=== PATIENT | female | born 1980 | race Two or more races ===

== ENCOUNTER → 2018-07-12 | Outpatient (CLI) | payer OTHER ==
[~2018-07-12] MED LIST: AMOCLA875 PO; AMOX500 PO; AZIT500 PO; Benadryl 50 mg50 MG PO; CEPH500 PO; CRUTCH3 USE; CRUTCH4 USE; CYCL10 PO; DIPH50 PO; HYDACE5 PO; IBUP800 PO; KETO10 PO; METO10; METO5A; METPRE4DP PO; NAPR500 PO; OMEP10ER PO; OMEP20ER PO; ONDA4 PO; OXYACE5T; OXYACE5T PO; OXYACE7.5T PO; PHENA200 PO; PRED10 PO; PRED20 PO; PRENATAL VIT; PROACE100 PO; PROCODE120 PO; PROM25 PO; RANI150 PO; RXAMOX500 PO; RXHYDACE PO; RXOXYACE PO; RXPHEN200 PO; RXSULTRIDS PO; SULTRIDS PO
== END | disposition home or self-care (01) ==
LOC: LAB SHORT 14:16 → LAB EV 14:16
DX: N39.0 Urinary tract infection, site not specified (principal)
CPT/HCPCS: 87077; 87086; 87147; 87186

== ENCOUNTER → 2018-07-27 | Outpatient (CLI) | payer OTHER ==
[2018-08-01 17:07] LABS: CHLAMYDIA BY NAA Negative (Negative); GONOCOCCUS BY NAA Negative (Negative); TRICH VAG BY NAA Negative (Negative)
== END ==
LOC: LAB EV 17:34 → LAB SHORT 17:34
PROVIDERS: Nurse Practitioner
DX: R10.2 Pelvic and perineal pain (principal)
CPT/HCPCS: 87070; 87205; 87491; 87591; 87661

== ENCOUNTER 2019-05-07 19:30 | Emergency (ER) | payer OTHER ==
[~2019-05-07] VITALS: Ht 170.2 cm; Wt 99.8 kg
[2019-05-07 20:35] LABS: BASOPHILS ABSOLUTE AUTO 0.08 K/mm3 (0.00-0.23); BASOPHILS PERCENT AUTO 1 % (0-2); EOSINOPHILS PERCENT AUTO 2 % (0-6); Hematocrit 37.1 % (33.0-51.0); Hemoglobin 12.1 g/dL (11.5-16.0); IMMATURE GRAN ABSOLUTE AUTO 0.04 K/mm3 (0.00-0.10); IMMATURE GRAN PERCENT AUTO 0 % (0-1); LYMPHOCYTES ABSOLUTE AUTO 4.15 K/mm3 (0.84-5.20); LYMPHOCYTES PERCENT AUTO 31 % (21-46); MONOCYTES ABSOLUTE AUTO 0.76 K/mm3 (0.16-1.47); MONOCYTES PERCENT AUTO 6 % (4-13); Mean Corpuscular HGB 29.5 pg (26.0-34.0); Mean Corpuscular HGB Conc 32.6 g/dL (31.5-36.5); Mean Corpuscular Volume 91 fL (80-100); Mean Platelet Volume 10.4 fL (9.1-12.4); NEUTROPHILS ABSOLUTE AUTO 8.07 K/mm3 (1.96-9.15); NEUTROPHILS PERCENT AUTO 61 % (41-73); Platelet Count 331 K/mm3 (150-400); RDW Coefficient Variation 13.3 % (11.7-14.2); RDW Standard Deviation 43.7 fL (35.1-46.3)
[2019-05-07] MEDS ORDERED: CYCL10 PO (20:36)
[2019-05-07] MEDS ORDERED: LARIN1 EACH PO (20:37)
[2019-05-07] MEDS ORDERED: PAIN CREAM (20:37)
[2019-05-07 20:57] LABS: Alanine Aminotransfer (ALT/SGP 23 U/L (12-78); Albumin, Blood 3.6 g/dL (3.4-5.0); Albumin/Globulin Ratio 0.8 (0.8-1.8); Alk Phos 68 U/L (50-136); Anion Gap 7 mmol/L (6-16); Aspartate Aminotrans (AST/SGOT 13 U/L (12-37); Bilirubin, Total 0.2 mg/dL (0.1-1.0); Blood Urea Nitrogen 12 mg/dL (8-24); Bun/Creatinine Ratio 16.4 (12.0-20.0); CO2, Blood 26 mmol/L (21-32); Calcium, Blood 8.7 mg/dL (8.5-10.1); Chloride, Blood 107 mmol/L (98-108); Creatinine, Blood 0.73 mg/dL (0.40-1.00); Globulin, Blood 4.3 g/dL (2.2-4.0); Glomerular Filtration Rate >60 (60-); Glucose, Blood 85 mg/dL (70-99); Potassium, Blood 3.7 mmol/L (3.5-5.5); Sodium, Blood 140 mmol/L (136-145); Total Protein, Blood 7.9 g/dL (6.4-8.2)
[2019-05-07 21:30] LABS: Source, Urine Clean Catch
[2019-05-07] MEDS ORDERED: COMPAZINE10 MG PO (21:32)
[2019-05-07] MEDS ORDERED: Norco 5-325 Ta1 EACH PO (21:32)
[2019-05-07 21:37] LABS: Bilirubin, Urine Neg (Neg); Blood, Urine Neg (Neg); Glucose Qualitative, Urine Neg (Neg); Ketones, Urine Neg (Neg); Leukocyte Esterase, Urine Neg (Neg); Nitrite, Urine Neg (Neg); Protein, Urine Neg (Neg); Urobilinogen, Urine NORM (Normal); pH, Urine 6.5 (5.0-8.0)
[2019-05-07 21:46] LABS: Appearance, Urine Clear (Clear); Color, Urine Yellow (P-Yellow)
[2019-07-31] MEDS ORDERED: ACYC200 (12:49)
[2019-07-31] MEDS ORDERED: EPIPEN0.3 MG/0.3 (12:49)
[2019-07-31] MEDS ORDERED: DICLOFENAC SOD100 G1 (12:49)
== END 2019-05-07 22:10 | disposition home or self-care (01) ==
LOC: ER 19:30
PROVIDERS: Physician Assistant
DX: K82.8 Other specified diseases of gallbladder (principal); F32.9 Major depressive disorder, single episode, unspecified; F17.200 Nicotine dependence, unspecified, uncomplicated; Z79.899 Other long term (current) drug therapy
CPT/HCPCS: 36415; 76705; 80053; 81003; 81025; 83690; 84703; 85025; 96361; 96374; 96375; 99284-25; A9270; A9270-GY; J1170; J1885; J2405; J7030

== ENCOUNTER 2019-08-05 08:42 | Day surgery (SDC) | payer OTHER ==
[~2019-08-05] VITALS: Ht 172.7 cm; Wt 99.5 kg
[~2019-08-05 08:42] MED LIST changes: +ACYC200; +COMPAZINE10 MG PO; +DICLOFENAC SOD100 G1; +EPIPEN0.3 MG/0.3; +LARIN1 EACH PO; +Norco 5-325 Ta1 EACH PO; +PAIN CREAM
--- NOTE | 2019-08-05 11:35 | NUR ---
08/05/19 1135 Kody Ny S 1115-LATE ENTRY PATIENT STATES SHE HAS A BAD RIGHT SHOULDER AND STATES IT IS STARTING TO BOTHER HER AND RATES PAIN AT A 7/10. DENIES THE NEED FOR PAIN MEDS.
== END 2019-08-05 11:26 | disposition home or self-care (01) ==
LOC: ORSCSDS 08:42
PROVIDERS: Internal Medicine Gastroenterology
PROC: 0DB88ZX Excision of Small Intestine, Via Natural or Artificial Opening Endoscopic, Diagnostic (ICD-10-PCS; principal; 2019-08-05 10:45)
PROC: 0DB68ZX Excision of Stomach, Via Natural or Artificial Opening Endoscopic, Diagnostic (ICD-10-PCS; principal; 2019-08-05 10:45)
DX: R10.9 Unspecified abdominal pain (principal); K92.1 Melena; B96.81 Helicobacter pylori [H. pylori] as the cause of diseases classified elsewhere; E66.9 Obesity, unspecified; F41.8 Other specified anxiety disorders; Z68.35 Body mass index [BMI] 35.0-35.9, adult; Z79.899 Other long term (current) drug therapy
CPT/HCPCS: 88305; 88342; J2250; J2704; J7120

== ENCOUNTER 2020-06-11 15:58 | Inpatient (IN) | payer OTHER ==
[~2020-06-11] VITALS: Ht 170.2 cm; Wt 109.0 kg
[2020-06-16] MEDS ORDERED: PEPCID40 MG PO (06:04)
[2020-06-16 06:46] LABS: BASOPHILS ABSOLUTE AUTO 0.05 K/mm3 (0.00-0.23); BASOPHILS PERCENT AUTO 0 % (0-2); EOSINOPHILS ABSOLUTE AUTO 0.15 K/mm3 (0.00-0.68); EOSINOPHILS PERCENT AUTO 1 % (0-6); Hematocrit 36.5 % (33.0-51.0); Hemoglobin 11.7 g/dL (11.5-16.0); IMMATURE GRAN ABSOLUTE AUTO 0.08 K/mm3 (0.00-0.10); IMMATURE GRAN PERCENT AUTO 1 % (0-1); LYMPHOCYTES ABSOLUTE AUTO 3.09 K/mm3 (0.84-5.20); LYMPHOCYTES PERCENT AUTO 22 % (21-46); MONOCYTES ABSOLUTE AUTO 1.11 K/mm3 (0.16-1.47); MONOCYTES PERCENT AUTO 8 % (4-13); Mean Corpuscular HGB 29.1 pg (26.0-34.0); Mean Corpuscular HGB Conc 32.1 g/dL (31.5-36.5); Mean Corpuscular Volume 91 fL (80-100); Mean Platelet Volume 10.3 fL (9.1-12.4); NEUTROPHILS ABSOLUTE AUTO 9.42 K/mm3 (1.96-9.15); NEUTROPHILS PERCENT AUTO 68 % (41-73); Platelet Count 273 K/mm3 (150-400); RDW Coefficient Variation 13.6 % (11.7-14.2); RDW Standard Deviation 45.1 fL (35.1-46.3); Red Blood Cell Count 4.02 M/mm3 (3.80-5.20)
[2020-06-16 07:21] LABS: U Amphetamine Screen Not Detected; U Barbituate Screen Not Detected; U Benzodiazapine Screen Not Detected; U Buprenorphine Screen Not Detected; U Cannabinoids Screen Not Detected; U Cocaine Screen Not Detected; U Methadone Screen Not Detected; U Methamphetamine Screen Not Detected; U Opiates Screen Not Detected; U Oxycodone Screen Not Detected; U Phencyclidine Screen Not Detected; U Propoxyphene Screen Not Detected
[2020-06-16 08:18] LABS: PCO2 Cord - Venous 41 mmHg (40-50); PO2 Cord - Venous 16.8 mmHg (28-32); pH Umbilical Cord - Venous 7.38 (7.26-7.35)
[2020-06-16 08:20] LABS: PCO2 Cord - Arterial 52.8 mmHg (40-50)
[2020-06-16 08:21] LABS: PO2 Cord - Arterial < 13 mmHg (16-20)
--- NOTE | 2020-06-16 08:38 | NUR ---
06/16/20 0838 Xiao Fonseca DELIVERY OF VIABLE MALE 8/9 APGARS, WEIGHT 4220 GMS. VACUUM ASSIST DELIVERY. SEE DELIVERY REPORT PLACENTA DELIVERED MANUALLY, COMPLETE. WEIGHT 755 GMS. BILATERAL SALPINGECTOMY DONE.
--- NOTE | 2020-06-16 15:37 | NUR ---
LUCAS CARE DONE
--- NOTE | 2020-06-16 17:42 | NUR ---
torri care done
[2020-06-17 05:46] LABS: BASOPHILS ABSOLUTE AUTO 0.03 K/mm3 (0.00-0.23); BASOPHILS PERCENT AUTO 0 % (0-2); EOSINOPHILS ABSOLUTE AUTO 0.18 K/mm3 (0.00-0.68); EOSINOPHILS PERCENT AUTO 1 % (0-6); Hematocrit 31.3 % (33.0-51.0); Hemoglobin 9.9 g/dL (11.5-16.0); IMMATURE GRAN ABSOLUTE AUTO 0.06 K/mm3 (0.00-0.10); IMMATURE GRAN PERCENT AUTO 1 % (0-1); LYMPHOCYTES ABSOLUTE AUTO 2.99 K/mm3 (0.84-5.20); LYMPHOCYTES PERCENT AUTO 24 % (21-46); MONOCYTES ABSOLUTE AUTO 1.03 K/mm3 (0.16-1.47); MONOCYTES PERCENT AUTO 8 % (4-13); Mean Corpuscular HGB 28.9 pg (26.0-34.0); Mean Corpuscular HGB Conc 31.6 g/dL (31.5-36.5); Mean Corpuscular Volume 91 fL (80-100); Mean Platelet Volume 10.1 fL (9.1-12.4); NEUTROPHILS ABSOLUTE AUTO 8.31 K/mm3 (1.96-9.15); NEUTROPHILS PERCENT AUTO 66 % (41-73); Platelet Count 234 K/mm3 (150-400); RDW Standard Deviation 46.3 fL (35.1-46.3); Red Blood Cell Count 3.43 M/mm3 (3.80-5.20)
--- NOTE | 2020-06-17 07:00 | NUR ---
ASSUMED CARE RPT FROM DADA JOHANSEN
--- NOTE | 2020-06-17 07:30 | NUR ---
PT REQUESTING TO REST WILL CHECK BACK, CALL LIGHT WITHIN REACH
--- NOTE | 2020-06-17 10:49 | NUR ---
PT UP AMBULATING IN HALLS, STATES SHE VOIDED, FEELING BETTER BACK PAIN RESOLVED.
--- NOTE | 2020-06-17 11:54 | NUR ---
RN ROUNDED TO HELP W/ . PT REPORTS IS GOING "REALLY WELL". DENIES ANY FURTHER QUESTIONS OR CONCERNS.
--- NOTE | 2020-06-17 13:30 | NUR ---
ASSISTED WITH GETTING UP TO BATHROOM, MOM GIVEN ENCOURAGED PT TO AMBULATE IN HALLS TO HELP RELIEVE GAS PAIN, NB TO NSY SO MOM CAN SLEEP
--- NOTE | 2020-06-17 17:09 | NUR ---
PT UP OUT OF BED AMBULATING DOWN HALLS PUSHING NB IN OPEN CRIB TOLERATING WALKING WELL
--- NOTE | 2020-06-17 18:54 | NUR ---
pt up ambulating in room caring for self and nb well, breast fed well t/o the day having good pain control with po meds, rept to on coming shift
[2020-06-18] MEDS ORDERED: DOCU100 PO (11:03)
[2020-06-18] MEDS ORDERED: Percocet 5-3251 EACH PO (11:03)
[2020-06-18] MEDS ORDERED: IBUP800 PO (11:03)
--- NOTE | 2020-06-19 11:02 | NUR ---
pt had a consult with dr mcconnell for a reported spinal headache, pt has a headache behind her eyes that is better when lays down, and hurts more when sitting up, no possibility of a spinal headache was mentioned in report. pt has been up to [place] a few times and seems to have no problems getting out of bed, walking to bathroom, no problems with lights being on, no guarding or wincing. dr mcconnell consulted and reports could be, but that the pt is far enough out that he encouraged her to continue to drink caffine. if not better in a week to notify provider and they will notify anesthia. pt ambulated out to car with no problems, planned to sit in the back of the car with baby. encouraged for pt to call with any questions or problems
== END 2020-06-19 10:40 | disposition home or self-care (01) | DRG 785 ==
LOC: BC 06-16 05:49
PROVIDERS: ADMIT Obstetrics & Gynecology
PROC: 10D00Z1 Extraction of Products of Conception, Low, Open Approach (ICD-10-PCS; principal; 2020-06-16 07:30)
PROC: 0UT70ZZ Resection of Bilateral Fallopian Tubes, Open Approach (ICD-10-PCS; 2020-06-16 07:30)
DX: O36.63X0 Maternal care for excessive fetal growth, third trimester, not applicable or unspecified (principal); Z30.2 Encounter for sterilization; D50.9 Iron deficiency anemia, unspecified; Z3A.39 39 weeks gestation of pregnancy; Z37.0 Single live birth; O34.211 Maternal care for low transverse scar from previous cesarean delivery; O99.03 Anemia complicating the puerperium; O99.212 Obesity complicating pregnancy, second trimester
CPT/HCPCS: 36415; 82803; 82947; 85025; 86850; 86900; 86901; 88302; J0690; J1885; J2210; J2370; J2590; J2704; J2765; J3010; J3360; J7120

== ENCOUNTER 2022-06-18 23:28 | Emergency (ER) | payer OTHER ==
[~2022-06-18] VITALS: Ht 170.2 cm; Wt 100.7 kg
[~2022-06-18 23:28] MED LIST changes: +DOCU100 PO; +PEPCID40 MG PO; +Percocet 5-3251 EACH PO
[2022-06-19 00:05] LABS: BASOPHILS ABSOLUTE AUTO 0.09 K/mm3 (0.00-0.23); BASOPHILS PERCENT AUTO 0 % (0-2); EOSINOPHILS ABSOLUTE AUTO 0.32 K/mm3 (0.00-0.68); EOSINOPHILS PERCENT AUTO 2 % (0-6); Hematocrit 36.7 % (33.0-51.0); Hemoglobin 12.1 g/dL (11.5-16.0); IMMATURE GRAN ABSOLUTE AUTO 0.08 K/mm3 (0.00-0.10); IMMATURE GRAN PERCENT AUTO 0 % (0-1); LYMPHOCYTES ABSOLUTE AUTO 4.72 K/mm3 (0.84-5.20); LYMPHOCYTES PERCENT AUTO 23 % (21-46); MONOCYTES PERCENT AUTO 6 % (4-13); Mean Corpuscular HGB 29.4 pg (26.0-34.0); Mean Corpuscular Volume 89 fL (80-100); Mean Platelet Volume 10.1 fL (9.1-12.4); NEUTROPHILS ABSOLUTE AUTO 13.86 K/mm3 (1.96-9.15); NEUTROPHILS PERCENT AUTO 68 % (41-73); Platelet Count 300 K/mm3 (150-400); RDW Coefficient Variation 13.5 % (11.7-14.2); RDW Standard Deviation 44.5 fL (35.1-46.3); Red Blood Cell Count 4.12 M/mm3 (3.80-5.20); White Blood Cell Count 20.37 K/mm3 (4.00-11.30)
[2022-06-19 00:23] LABS: Albumin, Blood 3.4 g/dL (3.4-5.0); Bilirubin, Total 0.2 mg/dL (0.1-1.0); Bun/Creatinine Ratio 15.5 (12.0-20.0); Calcium, Blood 8.4 mg/dL (8.5-10.1); Creatinine, Blood 0.64 mg/dL (0.40-1.00); Globulin, Blood 3.5 g/dL (2.2-4.0); Potassium, Blood 3.7 mmol/L (3.5-5.5); Total Protein, Blood 6.9 g/dL (6.4-8.2)
[2022-06-19 01:23] LABS: Source, Urine Clean Catch
[2022-06-19 01:36] LABS: Appearance, Urine Clear (Clear); Bilirubin, Urine Neg (Neg); Blood, Urine 5+ (Neg); Color, Urine Pale Yellow (P-Yellow); Glucose Qualitative, Urine Neg (Neg); Ketones, Urine Neg (Neg); Leukocyte Esterase, Urine 2+ (Neg); Nitrite, Urine Neg (Neg); Protein, Urine Neg (Neg); Specific Gravity, Urine 1.005 (1.003-1.022); Urobilinogen, Urine NORM (Normal); pH, Urine 6.5 (5.0-8.0)
[2022-06-19 01:47] LABS: Bacteria Rare /hpf; Red Blood Cells, Urine 0-2 /hpf (0-2); Squamous Epithelial Cells Not Seen /hpf (Few); White Blood Cells, Urine 25-50 /hpf (0-5)
[2022-06-19] MEDS ORDERED: CEPH500 PO (04:59)
== END 2022-06-19 05:10 | disposition home or self-care (01) ==
LOC: ER 23:28
PROVIDERS: Student in an Organized Health Care Education/Training Program
DX: N39.0 Urinary tract infection, site not specified (principal); Z88.6 Allergy status to analgesic agent; Z91.030 Bee allergy status; Z79.899 Other long term (current) drug therapy
CPT/HCPCS: 74176; 80053; 81001; 83605; 85025; J0696; J2270; J7120

== ENCOUNTER → 2022-09-01 | Outpatient (CLI) | payer OTHER ==
[2022-09-01 17:39] LABS: BASOPHILS ABSOLUTE AUTO 0.09 K/mm3 (0.00-0.23); BASOPHILS PERCENT AUTO 1 % (0-2); EOSINOPHILS ABSOLUTE AUTO 0.16 K/mm3 (0.00-0.68); EOSINOPHILS PERCENT AUTO 1 % (0-6); Hemoglobin 13.2 g/dL (11.5-16.0); IMMATURE GRAN ABSOLUTE AUTO 0.03 K/mm3 (0.00-0.10); IMMATURE GRAN PERCENT AUTO 0 % (0-1); LYMPHOCYTES ABSOLUTE AUTO 3.18 K/mm3 (0.84-5.20); LYMPHOCYTES PERCENT AUTO 28 % (21-46); MONOCYTES ABSOLUTE AUTO 0.72 K/mm3 (0.16-1.47); MONOCYTES PERCENT AUTO 6 % (4-13); Mean Corpuscular HGB 29.4 pg (26.0-34.0); Mean Corpuscular HGB Conc 33.8 g/dL (31.5-36.5); Mean Corpuscular Volume 87 fL (80-100); Mean Platelet Volume 10.3 fL (9.1-12.4); NEUTROPHILS ABSOLUTE AUTO 7.21 K/mm3 (1.96-9.15); NEUTROPHILS PERCENT AUTO 63 % (41-73); Platelet Count 313 K/mm3 (150-400); RDW Coefficient Variation 12.8 % (11.7-14.2); RDW Standard Deviation 40.5 fL (35.1-46.3); Red Blood Cell Count 4.49 M/mm3 (3.80-5.20); White Blood Cell Count 11.39 K/mm3 (4.00-11.30)
[2022-09-01 17:57] LABS: Albumin, Blood 4.2 g/dL (3.4-5.0); Albumin/Globulin Ratio 1.1 (0.8-1.8); Bilirubin, Total 0.3 mg/dL (0.1-1.0); Bun/Creatinine Ratio 11.5 (12.0-20.0); Creatinine, Blood 0.61 mg/dL (0.40-1.00); Globulin, Blood 3.7 g/dL (2.2-4.0); Potassium, Blood 3.7 mmol/L (3.5-5.5); Total Protein, Blood 7.9 g/dL (6.4-8.2)
== END ==
LOC: LAB 17:34 → LAB SHORT 17:34
PROVIDERS: Physician Assistant
DX: R07.89 Other chest pain (principal)
CPT/HCPCS: 80053; 84484; 85025

== ENCOUNTER → 2022-11-04 | Outpatient (CLI) | payer OTHER ==
[~2022-11-04] MED LIST changes: +Cyclobenzaprine5 MG; +ERGO400; +FERSU90EL; +FISH OIL 1,2001 EAC7; +Hair, Skin & N1 EACH; +METF500
== END ==
LOC: LAB 12:49 → LAB SHORT 12:49
DX: N39.0 Urinary tract infection, site not specified (principal)
CPT/HCPCS: 87086

== ENCOUNTER 2022-11-08 07:20 | Day surgery (SDC) | payer OTHER ==
[~2022-11-08] VITALS: Ht 170.2 cm; Wt 103.1 kg
[~2022-11-08 07:20] MED LIST changes: -Cyclobenzaprine5 MG; -ERGO400; -FERSU90EL; -FISH OIL 1,2001 EAC7; -Hair, Skin & N1 EACH; -METF500
[2022-11-08] MEDS ORDERED: ERGO400 (07:59)
[2022-11-08] MEDS ORDERED: Cyclobenzaprine5 MG (07:59)
[2022-11-08] MEDS ORDERED: FERSU90EL (07:59)
[2022-11-08] MEDS ORDERED: Hair, Skin & N1 EACH (08:00)
[2022-11-08] MEDS ORDERED: FISH OIL 1,2001 EAC7 (08:00)
[2022-11-08] MEDS ORDERED: METF500 (08:00)
--- NOTE | 2022-11-08 09:37 | NUR ---
11/08/22 0937 SUZI STALEY PT DENIES NAUSEA AT THIS TIME, TOLERATING PO LIQUIDS
== END 2022-11-08 09:47 | disposition home or self-care (01) ==
LOC: ORSCSDS 07:20
PROVIDERS: Surgery
PROC: 0DBN8ZX Excision of Sigmoid Colon, Via Natural or Artificial Opening Endoscopic, Diagnostic (ICD-10-PCS; principal; 2022-11-08 09:00)
DX: R19.4 Change in bowel habit (principal); K64.4 Residual hemorrhoidal skin tags; D12.5 Benign neoplasm of sigmoid colon; K21.9 Gastro-esophageal reflux disease without esophagitis; I10 Essential (primary) hypertension; F41.8 Other specified anxiety disorders; Z79.899 Other long term (current) drug therapy
CPT/HCPCS: 88305; J2250; J2704; J7120

== ENCOUNTER 2024-09-24 20:06 | Emergency (ER) | payer OTHER ==
[~2024-09-24] VITALS: Ht 170.2 cm; Wt 95.2 kg
[~2024-09-24 20:06] MED LIST changes: +Cyclobenzaprine5 MG; +ERGO400; +FERSU90EL; +FISH OIL 1,2001 EAC7; +Hair, Skin & N1 EACH; +METF500
[2024-09-24 20:40] VITALS: BP 129/95
[2024-09-24] MEDS ORDERED: HYDROcodone 10-APAP 325 TAB PO ONE (21:45)
[2024-09-24] MEDS ORDERED: ASPERFLEX1 EACH TOP (22:59)
== END 2024-09-24 23:00 | disposition home or self-care (01) ==
LOC: ER 20:06
DX: T14.90XA Injury, unspecified, initial encounter (principal); Z88.6 Allergy status to analgesic agent; Z88.8 Allergy status to other drugs, medicaments and biological substances; Z91.030 Bee allergy status; Z79.84 Long term (current) use of oral hypoglycemic drugs; Z79.899 Other long term (current) drug therapy; V40.5XXA Car driver injured in collision with pedestrian or animal in traffic accident, initial encounter
CPT/HCPCS: 99284; A9270

== ENCOUNTER → 2025-06-02 | Outpatient (CLI) | payer OTHER ==
[~2025-06-02] MED LIST changes: +ASPERFLEX1 EACH TOP
== END ==
LOC: LAB SHORT 19:21 → LAB 19:21
DX: N39.0 Urinary tract infection, site not specified (principal); R31.9 Hematuria, unspecified
CPT/HCPCS: 87077; 87086; 87186

== ENCOUNTER → 2025-10-25 | Outpatient (CLI) | payer OTHER | LOC: LAB SHORT 14:00 → LAB 14:00 | DX: N39.0 Urinary tract infection, site not specified (principal) | CPT/HCPCS: 87077; 87086; 87186 ==

== ENCOUNTER → 2025-10-27 | Outpatient (CLI) | payer OTHER ==
[2025-10-27 10:39] LABS: Hematocrit 38.3 % (33.0-51.0); Hemoglobin 12.7 g/dL (11.5-16.0); Mean Corpuscular HGB Conc 33.2 g/dL (31.5-36.5); Mean Corpuscular Volume 86 fL (80-100); NRBC ABSOLUTE 0.00 K/mm3 (0.00-0.02); NRBC Auto 0.0 /100 WBC (0.0-0.2); Platelet Count 320 K/mm3 (150-400); RDW Coefficient Variation 12.9 % (11.7-14.2); RDW Standard Deviation 40.5 fL (35.1-46.3)
[2025-10-27 10:58] LABS: BAND PERCENT MAN 5 % (0-8); BASOPHILS ABSOLUTE MAN 0.00 K/mm3 (0.00-0.23); BASOPHILS PERCENT MAN 0 % (0-2); EOSINOPHILS ABSOLUTE MAN 0.00 K/mm3 (0.00-0.68); EOSINOPHILS PERCENT MAN 0 % (0-6); LYMPHOCYTES ABSOLUTE MAN 2.92 K/mm3 (0.84-5.20); LYMPHOCYTES PERCENT MAN 17 % (21-46); MONOCYTES ABSOLUTE MAN 0.68 K/mm3 (0.16-1.47); MONOCYTES PERCENT MAN 4 % (4-13); NEUTROPHILS ABSOLUTE MAN 13.58 K/mm3 (1.96-9.15); SEG NEUTROPHILS PERCENT MAN 74 % (41-73)
== END | disposition home or self-care (01) ==
LOC: LAB 10:32 → LAB SHORT 10:32
PROVIDERS: Nurse Practitioner
DX: N10 Acute pyelonephritis (principal)
CPT/HCPCS: 85007; 85027